=== PATIENT | female | born 1985 | race Caucasian/White ===

== ENCOUNTER 2019-10-12 08:47 | Outpatient (CLI) | payer BC ==
--- NOTE | 2019-10-13 09:38 | NM ---
Exam: Nuclear medicine I-123 thyroid uptake and scan FINDINGS: 6 hour uptake equals 0.78%. 24-hour uptake equals 0.17%. Anterior imaging of the thyroid gland is performed at 24 hours. No uptake demonstrated within the thy roid gland at 24 hours. IMPRESSION: Very markedly abnormally low 6 and 24 uptake study. Nonvisualization of the thyroid gland with imaging at 24 hours.
== END 2019-10-12 08:48 | disposition home or self-care (01) ==
LOC: NM 08:47
PROVIDERS: ATTEND Internal Medicine Endocrinology, Diabetes & Metabolism
DX: E05.90 Thyrotoxicosis, unspecified without thyrotoxic crisis or storm (principal)
CPT/HCPCS: 78014; A9516